=== PATIENT | female | born 1945 | race Caucasian/White ===

== ENCOUNTER → 2017-01-21 | Outpatient (CLI) | payer MEDICARE, MEDICAID ==
[~2017-01-21] MED LIST: ACETAMINOPHEN500 M3 PO; ASPIRIN CHILDRE81 M1 PO; FERROUS SULFAT325 M1 PO; GLIPIZIDE 5MG TA5 MG PO; LISINOPRIL 20MG20 MG PO; LORTAB 5/3251 TAB PO; METOPROLOL 25 M25 MG PO; ONDANSETRON4 MG PO; PRAVASTATIN 20M20 MG PO; RISPERIDONE1 MG PO; TRAZODONE 50MG50 MG PO
--- NOTE | 2017-01-21 12:10 | RADIOLOGY REPORT PS360 ---
EARCEITI-EHG-1 VIEW COMP.-LT HISTORY: LEFT SHOULDER FX ORDERING PHYSICIAN: Balbir Alfred MD PATIENT AGE: 71 years COMPARISON: None available FINDINGS: Comminuted proximal left humeral fracture noted involving the humeral neck and extending into the base of the greater tuberosity. 9 mm medial displacement of the distal fracture fragment. 8 mm dorsal displacement of the distal fracture fragment. Greater tuberosity is displaced laterally by approximately 8 mm. The humeral head is located. IMPRESSION: Comminuted proximal left humeral fracture as described above with displacement
== END ==
LOC: RAD 08:50
DX: S42.212D Unspecified displaced fracture of surgical neck of left humerus, subsequent encounter for fracture with routine healing (principal)

== ENCOUNTER 2017-02-01 10:35 | Observation (INO) | payer MEDICARE ==
[2017-02-01] VITALS (11 sets, daily range): BP systolic 93–128; BP diastolic 42–73
[~2017-02-01] VITALS: Ht 154.9 cm; Wt 60.5 kg
[2017-02-01 13:30] LABS: ABO BLOOD TYPE O; RH BLOOD TYPE POSITIVE
--- NOTE | 2017-02-01 15:08 | RADIOLOGY REPORT PS360 ---
HUMERUS-LT COMPARISON: Right humerus same date HISTORY: Comminuted fracture left humeral head TECHNIQUE: AP film of left and right humerus FINDINGS: The common and fracture left has again noted unchanged in appearance from the previous films of 28 January. Measurement of the humeral length was obtained from the diametaphyseal zone. To the lateral epicondyle measuring 213.5 mm. A comparison AP film right arm is obtained measuring was obtained from the humeral head which is somewhat deformed likely from previous fracture again to the lateral epicondyles and this measures 255.7 mm. There is therefore 42 mm] difference in the length of the left humerus estimating the length of the humerus as if the humeral head where in proper location. IMPRESSION: Bilateral humeral measurements as described above
[2017-02-01 19:43] LABS: HEMOGLOBIN 8.4 g/dL (12.2-16.2)
[2017-02-01 20:30] LABS: URINE BILIRUBIN - DIPSTICK NEGATIVE (NEG); URINE BLOOD NEGATIVE (NEG)
--- NOTE | 2017-02-01 22:36 | Operative Note ---
Procedure/Operative Record Date of Procedure: 02/01/17 Pre-op diagnosis: Closed, comminuted, displaced fracture proximal humerus, LEFT Post-op diagnosis: Closed, comminuted, displaced fracture proximal humerus, LEFT Procedure performed: Cemented hemiarthroplasty, LEFT shoulder Surgeon: LISS NOLEN MD Network Associate(s): Dr. Alfred Anesthesia: General Indications: Patient is a 68-year-old [id number] female who sustained a comminuted and displaced fracture of LEFT proximal humerus following a fall about 2 weeks ago. She is a resident of [facility]. She is a patient of my colleague, Dr. Alfred. I have seen her in the office along with him and discussed management options including both nonsurgical and surgical. Given the degree of displacement, and comminution we have recommended a hemiarthroplasty of her LEFT shoulder to relieve the pain and improve function of her shoulder. Findings: A comminuted and displaced fracture of the proximal humerus with early callus formation. Her bone quality was poor with osteoporosis. The tuberosities were fractured but still together with the soft tissue attachment. The rotator cuff tendons were intact. The greater tuberosity fracture was comminuted. The articular surface of the glenoid was fairly well-preserved. Description of procedure: On the day of surgery the patient was met in the preoperative area and positively identified. I have discussed the injury, management options including both nonsurgical and surgical. She opted to proceed with surgical remediation. I have discussed the details of the procedure, risks and benefits and alternatives. Risks of surgery discussed include but are not limited to- infection, bleeding injury to nerves, tendons and blood vessels, bleeding, subacromial impingement, nerve injury/ palsy especially the axillary nerve, incisional scar (cosmesis), DVT/PE, malunion, nonunion/delayed union of the tuberosities, humeral shaft fracture, shoulder/elbow stiffness, persistent instability, shoulder dislocation, loosening of the implant, persistent pain, CRPS (complex regional pain syndrome- pain, sensory and temperature changes, swelling and stiffness), painful/prominent hardware, loss of fixation/hardware failure, incomplete relief of pain, incomplete return of function, and likely need for further surgery in future and also the risks of anesthesia including heart attack, stroke, and even . We've discussed how there is a small but real possibility of loss of use of the arm, loss of the limb [amputation] or loss of life itself. We've also explained how additional surgery may be required if there are any complications. We explained the postoperative pain management, recovery and rehabilitation, immobilization required, the need for physical therapy, the possibility of stiffness or arthrofibrosis, chronic pain and we've also discussed the option of nonsurgical treatment. We've outlined where the incision will be on the skin. A physical exam was performed and documented. The limb was marked and initialed by me. Consent form was reviewed and signed. The patient was brought to the operating room, a general anesthesia and interscalene block was administered by the anesthesia team. She was placed in a well-padded beach chair position. The C-arm was brought from the top and the fracture was screened under fluoroscopic guidance in multiple planes. The LEFT shoulder/upper extremity was then prepped and draped in the usual sterile fashion. The axilla and the operative site were sealed off with Ioban drape. dministration of prophylactic antibiotics was confirmed with the anesthesia team. A preprocedure timeout was performed as per the hospital protocol. The entire operative team wore isolation suits and the Operating Room traffic was controlled. Before making the incision, I injected 10 mL of 0.25 percent Marcaine with epinephrine into the subcutaneous tissue along the line of skin incision. A skin incision was made over the deltopectoral interval and dissection made through the subcutaneous tissue with minor bleeding controlled with electrocautery. Then , the deltopectoral interval was identified and was developed retracting the cephalic vein medially. The conjoint tendon was exposed and was retracted medially. The fracture was encountered and we removed the fracture hematoma/soft callus. The biceps tendon was identified, we deroofed the bicipital groove and opened the rotator interval with a Aburto scissors tracing the biceps tendon to its origin. The biceps tendon was released from the origin and tagged with a number 2 Ethibond suture. We then passed multiple #2 Ethibond sutures the the greater and tuberosities along with the attached rotator cuff tendons. These Ethibond tag stitches were used for later tuberosity repair. Then, the joint was opened and the humeral head was removed and measured. It was approximately 40 mm in diameter. Then, the remainder of the loose bony fragments were all removed and pulse lavage irrigation was used to clean the joint. The humeral canal was then prepared with the hand-held broaches up to size 10 at which point we felt very good bone chatter. A #8 expandable stem was chosen as it was going to be cemented into place. The trial stem was placed into position and using an appropriate trial femoral head, a trial reduction was performed. The skin was a very good fit and soft tissue tension. There was about 40-50 percent of translation of the humeral head over the glenoid. The satisfactory position was confirmed with fluoroscopic images. We then marked the appropriate level and retroversion. The 40 x 18 mm drill radius head was the most appropriate size, matching the patient's as well as the soft tissue tension on the shoulder. At this point, holes were drilled in the shaft of proximal humerus on either side of the bicipital groove and #2 fiber wires were placed through these holes for vertical suturing of the tuberosities. The wound was copiously irrigated with irrigation solution. The canal was copiously irrigated as well and suctioned dry. A cement restrictor was placed in the canal and the canal was dried using a Ray-Christian gauze soaked in 0.25 percent Marcaine with epinephrine. Methyl methacrylate (Simplex HV with gentamicin ) cement was mixed. The cement gun was used and the canal was filled with the cement. The #8 stem was then impacted into place and held in the position in the appropriate retroversion until the cement had cured. Excess cement was removed. Once the cement was cured , the selected dual radius Reunion head was impacted on to the Ceballos taper. It was stable and the shoulder was reduced. The cancellous bone harvested from the humeral head was placed around the humeral stem and the tuberosities were repaired with the #2 Ethibond sutures. The sutures were passed through the holes in the proximal implant. Then we also performed a vertical repair utilizing the #2 fiber wire sutures that were placed in the humeral shaft. This gave us a very good repair of the tuberosities over the proximal stem of the implant, sitting appropriately in just under the humeral head. The shoulder was well reduced and stable with appropriate soft tissue tension. The satisfactory position was confirmed with fluoroscopic screening. The rotator interval was closed with #2 Ethibond sutures in an interrupted fashion. The biceps tendon was tenodesed at the level of the tuberosity repair with #2 Ethibond sutures and the excess tendon was cut off. The elbow joint was put through range of motion and appropriate tension was noted in the biceps tendon. The wound was then copiously irrigated with antibiotic mixed irrigating solution and suctioned dry. Hemostasis was obtained with cautery. The deltopectoral interval was tagged with a single Ethibond suture for future identification if needed and rest was then approximated with interrupted #2-0 Vicryl sutures. Subcutaneous layer was approximated with interrupted #2-0 Vicryl and skin closed with subcuticular 4-0 Monocryl sutures, Dermabond and Steri-Strips. A bulky dressing was applied to the wound followed by application of an arm sling with abduction pillow. Circulatory status was intact in the extremity at the completion of the case. The patient was then reversed from the anesthetic and transferred onto the bed. She was then transferred to the postoperative recovery area in a stable condition. She tolerated the procedure well and there were no immediate complications. At the end of the procedure the swab, needle and instrument counts were correct according to the scrub team. A portable x-ray of the LEFT shoulder was obtained in the recovery area and was noted to be satisfactory. The patient was admitted to the hospital for observation, analgesia and two further doses of prophylactic antibiotics. EBL (ml): 100 Implant: Oolitic ReUnion hemiarthroplasty fracture stem humeral component, 8 mm Zelalem ReUnion shoulder dual radius humeral head, 40 mm x 18 mm Oolitic BioPrep cement restrictor Simplex HV bone cement with gentamicin (Industries he presented to- Tom Ibarra from [employer]) Complications: None Specimens: None
[2017-02-02] VITALS (7 sets, daily range): BP systolic 100–166; BP diastolic 50–71
--- NOTE | 2017-02-02 07:15 | ACUTE CARE PROGRESS NOTE (QUA) ---
Progress Notes Subjective Date 02/02/17 Time 0714 Note 71-year-old patient who is postop LEFT cemented hemiarthroplasty of the shoulder. Patient was kept overnight due to length of the procedure and monitoring for blood loss as she was anemic preoperatively. This morning the patient denies any complaints. Her pain is well controlled. She has some baseline confusion and tells me that she lives at [facility]. The patient actually lives at [facility] on [address] locally. Medical history significant for diabetes. She does tell me she has had blood transfusions in the past. She appears well. Slightly pale. Oropharynx is moist. Lungs are clear to auscultation. Heart has a regular rate and rhythm. LEFT shoulder is immobilized. Await labs this morning. Patient may require blood transfusion. Home medications been ordered. Should patient's anemia remain stable she could be discharged Objective Findings Last VS-Temp:99.0 B/P:166/71 Pulse:75 Resp:16 SaO2:96 ROOM AIR Last weight lbs:133 oz:6 K.498 Method:Bed Scales Laboratory Tests 02/02/17 0625: Sodium 138, Potassium 4.6, Chloride 104, Carbon Dioxide 25, BUN 16, Creatinine 0.6, Estimated Creat Clear 80, Estimated GFR (MDRD) 98, Glucose 184 H, Calcium 8.5 02/01/17 1930: Hgb 8.4 L, Hct 25.3 L 02/01/17 1749: POC Glucose 211 H 02/01/17 1250: Urine Color YELLOW, Urine Appearance CLEAR, Urine pH 8.0, Ur Specific [place] 1.010, Urine Protein NEGATIVE, Urine Ketones NEGATIVE, Urine Blood NEGATIVE, Urine Nitrate NEGATIVE, Urine Bilirubin NEGATIVE, Urine Urobilinogen 2.0, Ur Leukocyte Esterase NEGATIVE, Urine WBC OCC, Urine Bacteria OCC, Urine Mucus 1+, Urine Glucose NEGATIVE 02/01/17 1205: Antibody Screen NEGATIVE, Miscellaneous Test POSITIVE 02/01/17 1114: POC Glucose 97 Reviewed: medications, vital signs, lab results Assessment/Plan Problem List 1. Anemia, unspecified 2. Diabetes mellitus type 2 in nonobese 3. Status post left shoulder hemiarthroplasty Patient condition Stable This inpt stay is expected to cross 2 MNs from start of care No at 0750
--- NOTE | 2017-02-02 07:15 | PHARMACY CLINIC NOTE ---
Patient Demographics Patient Demographics Admission date: 02/01/17 Date: 02/02/17 Time: 07 Allergies Coded Allergies: prochlorperazine (From COMPAZINE) (NA-NAUSEA/VOMITING 02/01/17) Uncoded Allergies: RAGWEEDS (NERVOUS 01/28/17) HEIGHT- FT: 5 IN: 1.00 K.498 VTE General Information Labs: Laboratory Tests 02/01 1930 Hematology Hgb (12.2 - 16.2 g/dL) 8.4 L Hct (37.0 - 47.0 %) 25.3 L Disclaimer The following section includes nursing documentation that has been pulled in for pharmacy review. Patient's VTE score: 5 Patient's VTE Risk: LOW RISK VTE prophylaxis NQF [id number] VTE prophylaxis ordered? Yes Type of prophylaxis/treatment: ICD at 0715
--- NOTE | 2017-02-02 07:15 | ACUTE CARE PROGRESS NOTE (QUA) ---
Progress Notes Subjective Date 02/02/17 Time 0714 Note 71-year-old patient who is postop LEFT cemented hemiarthroplasty of the shoulder. Patient was kept overnight due to length of the procedure and monitoring for blood loss as she was anemic preoperatively. This morning the patient denies any complaints. Her pain is well controlled. She has some baseline confusion and tells me that she lives at [facility]. The patient actually lives at [facility] on [address] locally. Medical history significant for diabetes. She does tell me she has had blood transfusions in the past. She appears well. Slightly pale. Oropharynx is moist. Lungs are clear to auscultation. Heart has a regular rate and rhythm. LEFT shoulder is immobilized. Await labs this morning. Patient may require blood transfusion. Home medications been ordered. Should patient's anemia remain stable she could be discharged Objective Findings Last VS-Temp:99.0 B/P:166/71 Pulse:75 Resp:16 SaO2:96 ROOM AIR Last weight lbs:133 oz:6 K.498 Method:Bed Scales Laboratory Tests 02/02/17 0625: Sodium 138, Potassium 4.6, Chloride 104, Carbon Dioxide 25, BUN 16, Creatinine 0.6, Estimated Creat Clear 80, Estimated GFR (MDRD) 98, Glucose 184 H, Calcium 8.5 02/01/17 1930: Hgb 8.4 L, Hct 25.3 L 02/01/17 1749: POC Glucose 211 H 02/01/17 1250: Urine Color YELLOW, Urine Appearance CLEAR, Urine pH 8.0, Ur Specific [place] 1.010, Urine Protein NEGATIVE, Urine Ketones NEGATIVE, Urine Blood NEGATIVE, Urine Nitrate NEGATIVE, Urine Bilirubin NEGATIVE, Urine Urobilinogen 2.0, Ur Leukocyte Esterase NEGATIVE, Urine WBC OCC, Urine Bacteria OCC, Urine Mucus 1+, Urine Glucose NEGATIVE 02/01/17 1205: Antibody Screen NEGATIVE, Miscellaneous Test POSITIVE 02/01/17 1114: POC Glucose 97 Reviewed: medications, vital signs, lab results Assessment/Plan Problem List 1. Anemia, unspecified 2. Diabetes mellitus type 2 in nonobese 3. Status post left shoulder hemiarthroplasty Patient condition Stable This inpt stay is expected to cross 2 MNs from start of care No at 0750
[2017-02-02 07:27] LABS: HEMOGLOBIN 9.2 g/dL (12.2-16.2); LYMPH % 9.8 % (10-50.0)
[2017-02-02] MEDS ORDERED: ONDANSETRON4 MG PO (09:58)
[2017-02-02] MEDS ORDERED: ACETAMINOPHEN500 M3 PO (09:58)
[2017-02-02] MEDS ORDERED: ASPIRIN CHILDRE81 M1 PO (09:59)
[2017-02-02] MEDS ORDERED: LISINOPRIL 20MG20 MG PO (10:00)
[2017-02-02] MEDS ORDERED: GLIPIZIDE 5MG TA5 MG PO (10:00)
[2017-02-02] MEDS ORDERED: METOPROLOL 25 M25 MG PO (10:01)
[2017-02-02] MEDS ORDERED: RISPERIDONE1 MG PO (10:02)
[2017-02-02] MEDS ORDERED: PRAVASTATIN 20M20 MG PO (10:02)
[2017-02-02] MEDS ORDERED: TRAZODONE 50MG50 MG PO (10:03)
--- NOTE | 2017-02-02 13:15 | ACUTE CARE PROGRESS NOTE ---
Progress note Date: 02/02/17 Assessment: Subjective: Patient says she is doing well. She is seating of in the bed and eating her lunch. She says the pain is well-controlled with medication. No history of any fever, chills or rigors. She is eating and drinking well. Objective: Reviewed the vitals, labs, medication, medical consult note and discussed with the nursing staff. H and H this morning is 9.2 over 27.1 Exam General appearance: alert, no acute distress Eyes: anicteric, conjunctiva clear, PERRLA ENT: mucous membranes moist Neck: Soft and supple, no carotid bruit Cardiovascular: regular rate & rhythm, no murmur Respiratory: clear to auscultation, good air movement, no respiratory distress ABD: soft, no tenderness, no organomegaly, bowel sounds heard over all 4 quadrants Extremities: The LEFT upper extremity in a sling with abduction pillow. The surgical dressings are clean dry and intact. She has good range of elbow, wrist and finger movements. Clinically the axillary nerve is intact. Distal radial and ulnar pulses are 2+. Sensation is intact to light touch distally. Impression: 1. Anemia, unspecified 2. Diabetes mellitus type 2 in nonobese 3. Status post left shoulder hemiarthroplasty Plan: I reviewed the findings and surgical procedures with the patient. She is doing well postoperatively and no early complications or problems noted. The postoperative check x-ray is satisfactory. I advised her to continue with the arm sling. I have encouraged her to mobilize the elbow, wrist and fingers. If medically appropriate, she can be discharged back to the intermediate today. Follow up in my office in 1 week time.
[2017-02-02] MEDS ORDERED: LORTAB 5/3251 TAB PO (14:50)
[2017-02-02] MEDS ORDERED: FERROUS SULFAT325 M1 PO (14:51)
--- NOTE | 2017-02-02 16:44 | RADIOLOGY REPORT PS360 ---
[id number] VIEW COMP.-LT COMPARISON: Left shoulder and humerus 02/01/2017 HISTORY: comminuted fracture left humeral head TECHNIQUE: ORIF FINDINGS: Multiple fluoroscopic spot films show placement of the total shoulder prosthesis following removal of the comminuted fractured humeral head. The prosthetic head appears be in good alignment and apposition to the glenoid and the humeral shaft. IMPRESSION: Satisfactory placement of shoulder prosthesis
--- NOTE | 2017-02-02 16:48 | RADIOLOGY REPORT PS360 ---
[id number] VIEW COMP.-LT COMPARISON: Left shoulder and humerus 02/01/2017 HISTORY: ORIF total shoulder prosthesis TECHNIQUE: AP and lateral views FINDINGS: The total shoulder prosthesis is in good alignment to the [place] glenoid. The medullary stem of the prosthesis is well seated within the proximal humerus surrounded by opaque cement. Comparison with the preoperative film shows apparent accurate caodaism of proper length of the left humerus with the prosthesis in place. IMPRESSION: Satisfactory ORIF left total shoulder prosthesis
--- NOTE | 2017-02-02 16:48 | RADIOLOGY REPORT PS360 ---
[id number] VIEW COMP.-LT COMPARISON: Left shoulder and humerus 02/01/2017 HISTORY: ORIF total shoulder prosthesis TECHNIQUE: AP and lateral views FINDINGS: The total shoulder prosthesis is in good alignment to the three affiliated glenoid. The medullary stem of the prosthesis is well seated within the proximal humerus surrounded by opaque cement. Comparison with the preoperative film shows apparent accurate restorationist of proper length of the left humerus with the prosthesis in place. IMPRESSION: Satisfactory ORIF left total shoulder prosthesis
== END 2017-02-02 16:50 | disposition home or self-care (01) ==
LOC: SDC 10:35 → 2ND 11:47 → SDC 11:47 → 2ND 11:47 → SDC 12:00 → 2ND 18:52
PROVIDERS: Orthopaedic Surgery
PROC: 0RRK0J6 Replacement of Left Shoulder Joint with Synthetic Substitute, Humeral Surface, Open Approach (ICD-10-PCS; principal; 2017-02-01 12:00)
DX: S42.252A Displaced fracture of greater tuberosity of left humerus, initial encounter for closed fracture (principal); W19.XXXA Unspecified fall, initial encounter; E11.9 Type 2 diabetes mellitus without complications; D64.9 Anemia, unspecified
CPT/HCPCS: C1776; G0378; J0131; J2405

== ENCOUNTER 2017-06-06 14:43 | Emergency (ER) | payer MEDICARE ==
[~2017-06-06] VITALS: Ht 154.9 cm; Wt 77.1 kg
--- NOTE | 2017-06-06 15:01 | Emergency Room Report ---
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 N Clinical Suspician of Infection? N Mental Status: 1 - Regular (Normal Baseline) Sepsis Risk:Low Sepsis Risk Have you (or family members/close friends) recently traveled outside the [place]? N If Yes, where/when: Have you had exposure to infectious disease within the past month? N TB? Other? Specify: 72 yrs old white female with a chronic left elbow pain, she fell on the steps with the result of left frontal abrasions, she denies loc, or neck pain, she denies chest, abdomen, hips pain. her left elbow is chronic. no loss of motor or sensory function. Source patient, RN notes reviewed, family Exam Limitations no limitations Cardiac Chest Pain Chest pain indicative of cardiac Yes ALLERGIES Coded Allergies: prochlorperazine (From COMPAZINE) (NA-NAUSEA/VOMITING 02/01/17) Ragweed ("MAKES HER NERVOUS" 02/02/17) Home Medications Active Scripts HYDROCODONE/ACETAMINOPHEN (Lortab 5-325 MG Tablet) 1 TAB PO Q4HP PRN MILD TO MODERATE PAIN #40 TAB Prov: 02/02/17 Ferrous Sulfate (Ferrous Sulfate 325MG) 325 MG PO BID #90 TAB Prov: 02/02/17 Reported Medications ONDANSETRON HCL (Ondansetron HCl 4mg Tab) 4 MG PO Q8HP PRN NAUSEA Aspirin 81 MG PO DAILY Glipizide (Glipizide 5MG) 5 MG PO QAM LISINOPRIL (Lisinopril) 20 MG PO DAILY Metoprolol Tartrate (Metoprolol 25MG) 25 MG PO BID Pravastatin Sodium (Pravastatin 20MG) 20 MG PO QHS Risperidone 1 MG PO BID TRAZODONE HCL (Trazodone HCl) 50 MG PO QHS History Medical History General CAD? No Angina: Yes [place]: No Hypertension? Yes Hyperlipidemia? Yes CHF? No DVT? No PE? No COPD? No Asthma? No Anemia? No GERD? No Gastric ulcers? No GI Bleed? No Hernia? No Thyroid Problems? No Hypothyroidism? No CVA? Yes Seizures? No Diabetes? Yes Insulin Dependent: No Insulin Pump: No Home FSBS? No Renal Insuffiency? No End Stage Renal Disease? No UTI? Yes Stones? No BPH? No GB Disease: No Nephritic Syndrome? No Asplenia? No Hepatitis? No Sickle Cell Disease? No Arthritis? No Migraines? No Cataracts? No Glaucoma? No MRSA? No HIV? No TB? No Anxiety? No Depression? No Cancer? No More? No Immunization Hx DT/Tetanus > 10 Years Ago Flu 2016-17FSN Pneumonia Received In Past Surgical Hx Previous Surgery?Y Hysterectomy-Total L SHOULDER Family History Family Hx Diabetes No CAD Yes Hypertension Yes Hyperlipidemia No Cancer No TB No Social History Smoking Hx Smoker: Never Smoker Tobacco: No Alcohol Alcohol: No Review of Systems All Other Systems Reviewed and Negative Constitutional no symptoms reported Eyes no symptoms reported ENT no symptoms reported. Respiratory no symptoms reported Cardiovascular no symptoms reported Gastrointestinal no symptoms reported Genitourinary no symptoms reported. Musculoskeletal see HPI Skin see HPI Psychiatric/Neurological no symptoms reported Physical Exam Vital Signs Vital Signs Date Time Temp Pulse Resp B/P Pulse O2 O2 Flow FiO2 Ox Delivery Rate 06/06 1712 60 16 158/63 97 06/06 1610 60 18 171/68 97 06/06 1446 98.2 70 18 144/104 98 - WBC >12,000 or <4,000 or 10% bands? 2 or more SIRS Criteria Met? B/P:144/104 MAP:117 Creatinine >2.0? UA output<0.5ml/kg/hr for 2 hrs? Platelet count >100,000? Lactate >2.0mmol/1? INR >1.2 or PTT > than 60 sec? Evidence of Organ Dysfunction? Provider documented clinical suspician of infection? N Sepsis Criteria Count: 0 Sepsis Risk: Low Sepsis Risk General Appearance normal appearance, WD/WN Eye Exam - bilateral eye normal exam, bilateral eye PERRL, bilateral eye EOMI Ear, Nose, Throat hearing grossly normal, normal ENT inspection Neck normal inspection, non-tender, supple, full range of motion Respiratory Status Yes: trachea midline, chest symmetrical, non tender chest. No: respiratory distress. Lung Sounds bilateral: normal breath sounds, lungs clear. Cardiovascular normal exam, regular rate/rhythm, no peripheral edema, no gallop, no JVD, no murmur, no rub, normal peripheral pulses Peripheral Pulses Pulses normal Yes Gastrointestinal normal bowel sounds, normal exam, non tender, soft, no organomegaly Back normal inspection, no CVA tenderness, no vertebral tenderness Extremities non-tender, normal range of motion, normal inspection, tenderness on palpating the left elbow. 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 No Results/Orders Current Medication Orders Sig/[place] Start time Last Medication Dose Route Stop Time Status Admin Acetaminophen 0 .STK-MED ONE 06/06 1530 DC PO Acetaminophen 650 MG ONCE ONE 06/06 1500 DC 06/06 PO 06/06 1501 1530 Orders Procedure Date/time Status DIET-NOTHING BY MOUTH 06/[address] SCAN REQUEST 06/[address] HEAD REQ 06/[address] SCAN REQ 06/06 1455 Complete Departure Departure Time of Disposition 1459 Disposition DC Home or Self Care(routine) Clinical Impression Primary Impression: Skin abrasion Secondary Impressions: Elbow fracture, left, Elbow pain, chronic Condition STABLE Referrals Balbir Alfred MD Additional Instructions I DISCUSSED WITH DR TERRELL ABOUT HER X RAY AND ORDERED CT SCAN WICH SHOWED COMMNIUTED FRACTRE OF THE CONDYLE. I DISCUSSED WITH DR RENEE AND HE SUGGESTED POST SPLINT AND CLOSE FOLLOW UP IN 1- 2 DAYS, HE IS RECOMMENDING A MEDICAL , CONSERVATIVE TREATMENT IN HER CASE. I PLACED A POST SPLINT WITH [facility]. I ADDRESSED HER INDEPENDENT LIVING IN [facility] WITH THE NURSING STAFF WHO FELT THAT IT COULD BE MANAGED BY [facility] STAFF. THE PATIEN WAS SCHEDULED TO SEE DR RENEE. SHE WAS DISCHARGED IN A STABLE CONDITION. Discharge Counseling Counseled pt/family regarding diagnosis, test results, medications/RX, home care, follow up needs ED Critical Care Critical Care No If Critical Care minutes are documented, the time involved in the performance of seperately reportable procedures was not counted toward critical care time documented. I directly delivered medical care to this critically ill and/or injured patient. Timely evaluation and treatment was necessary to address the significant organ system(s) dysfunction present in this patient. at [id number]
--- NOTE | 2017-06-06 15:01 | Emergency Room Report ---
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 N Clinical Suspician of Infection? N Mental Status: 1 - Regular (Normal Baseline) Sepsis Risk:Low Sepsis Risk Have you (or family members/close friends) recently traveled outside the [place]? N If Yes, where/when: Have you had exposure to infectious disease within the past month? N TB? Other? Specify: 72 yrs old white female with a chronic left elbow pain, she fell on the steps with the result of left frontal abrasions, she denies loc, or neck pain, she denies chest, abdomen, hips pain. her left elbow is chronic. no loss of motor or sensory function. Source patient, RN notes reviewed, family Exam Limitations no limitations Cardiac Chest Pain Chest pain indicative of cardiac Yes ALLERGIES Coded Allergies: prochlorperazine (From COMPAZINE) (NA-NAUSEA/VOMITING 02/01/17) Ragweed ("MAKES HER NERVOUS" 02/02/17) Home Medications Active Scripts HYDROCODONE/ACETAMINOPHEN (Lortab 5-325 MG Tablet) 1 TAB PO Q4HP PRN MILD TO MODERATE PAIN #40 TAB Prov: 02/02/17 Ferrous Sulfate (Ferrous Sulfate 325MG) 325 MG PO BID #90 TAB Prov: 02/02/17 Reported Medications ONDANSETRON HCL (Ondansetron HCl 4mg Tab) 4 MG PO Q8HP PRN NAUSEA Aspirin 81 MG PO DAILY Glipizide (Glipizide 5MG) 5 MG PO QAM LISINOPRIL (Lisinopril) 20 MG PO DAILY Metoprolol Tartrate (Metoprolol 25MG) 25 MG PO BID Pravastatin Sodium (Pravastatin 20MG) 20 MG PO QHS Risperidone 1 MG PO BID TRAZODONE HCL (Trazodone HCl) 50 MG PO QHS History Medical History General CAD? No Angina: Yes [place]: No Hypertension? Yes Hyperlipidemia? Yes CHF? No DVT? No PE? No COPD? No Asthma? No Anemia? No GERD? No Gastric ulcers? No GI Bleed? No Hernia? No Thyroid Problems? No Hypothyroidism? No CVA? Yes Seizures? No Diabetes? Yes Insulin Dependent: No Insulin Pump: No Home FSBS? No Renal Insuffiency? No End Stage Renal Disease? No UTI? Yes Stones? No BPH? No GB Disease: No Nephritic Syndrome? No Asplenia? No Hepatitis? No Sickle Cell Disease? No Arthritis? No Migraines? No Cataracts? No Glaucoma? No MRSA? No HIV? No TB? No Anxiety? No Depression? No Cancer? No More? No Immunization Hx DT/Tetanus > 10 Years Ago Flu 2016-17FSN Pneumonia Received In Past Surgical Hx Previous Surgery?Y Hysterectomy-Total L SHOULDER Family History Family Hx Diabetes No CAD Yes Hypertension Yes Hyperlipidemia No Cancer No TB No Social History Smoking Hx Smoker: Never Smoker Tobacco: No Alcohol Alcohol: No Review of Systems All Other Systems Reviewed and Negative Constitutional no symptoms reported Eyes no symptoms reported ENT no symptoms reported. Respiratory no symptoms reported Cardiovascular no symptoms reported Gastrointestinal no symptoms reported Genitourinary no symptoms reported. Musculoskeletal see HPI Skin see HPI Psychiatric/Neurological no symptoms reported Physical Exam Vital Signs Vital Signs Date Time Temp Pulse Resp B/P Pulse O2 O2 Flow FiO2 Ox Delivery Rate 06/06 1712 60 16 158/63 97 06/06 1610 60 18 171/68 97 06/06 1446 98.2 70 18 144/104 98 - WBC >12,000 or <4,000 or 10% bands? 2 or more SIRS Criteria Met? B/P:144/104 MAP:117 Creatinine >2.0? UA output<0.5ml/kg/hr for 2 hrs? Platelet count >100,000? Lactate >2.0mmol/1? INR >1.2 or PTT > than 60 sec? Evidence of Organ Dysfunction? Provider documented clinical suspician of infection? N Sepsis Criteria Count: 0 Sepsis Risk: Low Sepsis Risk General Appearance normal appearance, WD/WN Eye Exam - bilateral eye normal exam, bilateral eye PERRL, bilateral eye EOMI Ear, Nose, Throat hearing grossly normal, normal ENT inspection Neck normal inspection, non-tender, supple, full range of motion Respiratory Status Yes: trachea midline, chest symmetrical, non tender chest. No: respiratory distress. Lung Sounds bilateral: normal breath sounds, lungs clear. Cardiovascular normal exam, regular rate/rhythm, no peripheral edema, no gallop, no JVD, no murmur, no rub, normal peripheral pulses Peripheral Pulses Pulses normal Yes Gastrointestinal normal bowel sounds, normal exam, non tender, soft, no organomegaly Back normal inspection, no CVA tenderness, no vertebral tenderness Extremities non-tender, normal range of motion, normal inspection, tenderness on palpating the left elbow. 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 No Results/Orders Current Medication Orders Sig/[place] Start time Last Medication Dose Route Stop Time Status Admin Acetaminophen 0 .STK-MED ONE 06/06 1530 DC PO Acetaminophen 650 MG ONCE ONE 06/06 1500 DC 06/06 PO 06/06 1501 1530 Orders Procedure Date/time Status DIET-NOTHING BY MOUTH 06/[address] SCAN REQUEST 06/[address] HEAD REQ 06/[address] SCAN REQ 06/06 1455 Complete Departure Departure Time of Disposition 1459 Disposition DC Home or Self Care(routine) Clinical Impression Primary Impression: Skin abrasion Secondary Impressions: Elbow fracture, left, Elbow pain, chronic Condition STABLE Referrals Balbir Alfred MD Additional Instructions I DISCUSSED WITH DR TERRELL ABOUT HER X RAY AND ORDERED CT SCAN WICH SHOWED COMMNIUTED FRACTRE OF THE CONDYLE. I DISCUSSED WITH DR RENEE AND HE SUGGESTED POST SPLINT AND CLOSE FOLLOW UP IN 1- 2 DAYS, HE IS RECOMMENDING A MEDICAL , CONSERVATIVE TREATMENT IN HER CASE. I PLACED A POST SPLINT WITH [facility]. I ADDRESSED HER INDEPENDENT LIVING IN [facility] WITH THE NURSING STAFF WHO FELT THAT IT COULD BE MANAGED BY [facility] STAFF. THE PATIEN WAS SCHEDULED TO SEE DR RENEE. SHE WAS DISCHARGED IN A STABLE CONDITION. Discharge Counseling Counseled pt/family regarding diagnosis, test results, medications/RX, home care, follow up needs ED Critical Care Critical Care No If Critical Care minutes are documented, the time involved in the performance of seperately reportable procedures was not counted toward critical care time documented. I directly delivered medical care to this critically ill and/or injured patient. Timely evaluation and treatment was necessary to address the significant organ system(s) dysfunction present in this patient. at [id number]
--- NOTE | 2017-06-06 15:43 | RADIOLOGY REPORT PS360 ---
CT HEAD W/O CONTRAST HISTORY: Headache/pain following injury, frontal contusion FELL ON STEPS ORDERING PHYSICIAN: Kam Sanchez MD PATIENT AGE: 72 years COMPARISON: None TECHNIQUE: Axial images obtained without contrast. Brain and bone windows reviewed. FINDINGS: No midline shift, mass effect, intracranial hemorrhage, hydrocephalus, or extra-axial fluid collection is evident. There is generalized atrophy with hypoattenuation in the periventricular and subcortical region consistent with ischemic gliotic change from microvascular disease. There is some mild soft tissue swelling in the scalp region of the frontal area left. No calvarial fracture or sinus air-fluid level. There is right mastoid effusion. IMPRESSION: 1. No acute intracranial pathology. 2. Left frontal scalp contusion. 3. Right mastoid sinus disease
--- NOTE | 2017-06-06 15:47 | RADIOLOGY REPORT PS360 ---
CT CERVICAL SPINE W/O CONT INDICATION: Neck pain following injury FELL ON STEPS ORDERING PHYSICIAN: Kam Sanchez MD PATIENT AGE: 72 years COMPARISON: None TECHNIQUE: Axial images are obtained without contrast. Sagittal and coronal reformatted images are reviewed as well. FINDINGS: Normal alignment. No fracture or dislocation apparent. There is mild degenerative disc disease and facet arthritic change from C4 to T1. Lung apices are clear. IMPRESSION: 1. No acute fracture. 2. Mild cervical spondylosis
--- NOTE | 2017-06-06 16:14 | RADIOLOGY REPORT PS360 ---
ELBOW-LT-3 VIEWS HISTORY: Post traumatic pain fell on steps ORDERING PHYSICIAN: Kam Sanchez MD PATIENT AGE: 72 years COMPARISON: None FINDINGS: There is somewhat limited technically due to inability to properly position the patient. There is both a positive anterior and posterior fat pad consistent with hemarthrosis. There is a fracture at least involving the lateral epicondylar region. Consider CT of the elbow for more thorough evaluation to better determine the extent of the fracture as patient cannot be properly positioned for plain films. IMPRESSION: Transverse fracture involves the lateral condylar region of the distal humerus and may extend more medial as well as. Consider CT for more thorough evaluation. Hemarthrosis is noted with displaced fat pad
--- NOTE | 2017-06-06 17:17 | RADIOLOGY REPORT PS360 ---
CT EXT.UPPER-LT-W/O CONTRAST CLINICAL INDICATION: Pain and swelling left elbow, abnormal radiograph FALL PAIN LEFT ELBOW ORDERING PHYSICIAN: Kam Sanchez MD PATIENT AGE: 72 years COMPARISON: Radiograph of the same day FINDINGS: Study is somewhat limited technically due to patient's inability to be properly positioned. There is diffuse osteopenia which further somewhat limits the exam. There is a comminuted fracture involving the lateral epicondyles. Fracture extends into the intercondylar region. There is mild impaction of the distal fracture fragment. No obvious radial head fracture. Joint effusion is present. The olecranon appears intact. IMPRESSION: 1. Comminuted lateral epicondylar fracture with extension into the intercondylar region. Mild impaction of fracture fragments.
[2017-06-06 17:54] VITALS: BP 158/63
== END 2017-06-06 17:55 | disposition home or self-care (01) ==
LOC: ER 14:43
PROC: 2W39X1Z Immobilization of Left Upper Extremity using Splint (ICD-10-PCS; principal; 2017-06-06)
DX: S42.455A Nondisplaced fracture of lateral condyle of left humerus, initial encounter for closed fracture (principal); S50.312A Abrasion of left elbow, initial encounter; W10.9XXA Fall (on) (from) unspecified stairs and steps, initial encounter; Y92.199 Unspecified place in other specified residential institution as the place of occurrence of the external cause